=== PATIENT | male | born 1940 | race Two or more races ===

== ENCOUNTER 2018-05-12 10:03 | Outpatient (CLI) | payer OTHER | END 2018-05-12 10:11 | disposition home or self-care (01) | LOC: SONOGRAMA 10:03 | DX: I11.9 Hypertensive heart disease without heart failure (principal); N18.2 Chronic kidney disease, stage 2 (mild) ==

== ENCOUNTER 2021-04-22 08:00 | Outpatient (CLI) | payer OTHER | END 2021-04-22 08:30 | disposition home or self-care (01) | LOC: PPH VACUNA 08:00 | PROVIDERS: ATTEND Emergency Medicine Pediatric Emergency Medicine | DX: Z23 Encounter for immunization (principal) ==

== ENCOUNTER → 2021-11-11 | Outpatient (CLI) | payer OTHER | END | disposition home or self-care (01) | LOC: PPH VACUNA 08:00 | PROVIDERS: ATTEND Emergency Medicine Pediatric Emergency Medicine | DX: Z23 Encounter for immunization (principal) ==

== ENCOUNTER 2021-12-17 09:14 | Outpatient (CLI) | payer OTHER | END 2021-12-17 09:20 | disposition home or self-care (01) | LOC: SONOGRAMA 09:14 | PROVIDERS: ATTEND Internal Medicine Gastroenterology | DX: K76.0 Fatty (change of) liver, not elsewhere classified (principal) ==

== ENCOUNTER 2021-12-19 15:26 | Outpatient (CLI) | payer OTHER | END 2021-12-19 15:32 | disposition home or self-care (01) | LOC: RAD 15:26 | PROVIDERS: ATTEND Physical Medicine & Rehabilitation | DX: M54.50 Low back pain, unspecified (principal) ==

== ENCOUNTER 2022-04-06 12:26 | Outpatient (CLI) | payer OTHER | END 2022-04-06 12:36 | disposition home or self-care (01) | LOC: PPH VACUNA 12:26 | PROVIDERS: ATTEND Emergency Medicine Pediatric Emergency Medicine | DX: Z23 Encounter for immunization (principal) ==

== ENCOUNTER 2023-03-25 11:24 | Outpatient (CLI) | payer OTHER | END 2023-03-25 11:32 | disposition home or self-care (01) | LOC: MRI 11:24 | PROVIDERS: ATTEND Psychiatry & Neurology Neurology | DX: G31.84 Mild cognitive impairment of uncertain or unknown etiology (principal) | CPT/HCPCS: 70551 ==

== ENCOUNTER → 2023-06-30 | Outpatient (CLI) | payer OTHER | END | disposition home or self-care (01) | LOC: MRI 06-29 13:42 | DX: M75.51 Bursitis of right shoulder (principal); M75.101 Unspecified rotator cuff tear or rupture of right shoulder, not specified as traumatic; M75.31 Calcific tendinitis of right shoulder | CPT/HCPCS: 73221 ==

== ENCOUNTER 2023-09-22 10:24 | Outpatient (CLI) | payer OTHER | END 2023-09-22 10:33 | disposition home or self-care (01) | LOC: RAD 10:24 | PROVIDERS: ATTEND Physical Medicine & Rehabilitation Sports Medicine | DX: M75.42 Impingement syndrome of left shoulder (principal); M70.62 Trochanteric bursitis, left hip; M75.112 Incomplete rotator cuff tear or rupture of left shoulder, not specified as traumatic ==

== ENCOUNTER 2024-04-07 09:28 | Outpatient (CLI) | payer OTHER | END 2024-04-07 09:34 | disposition home or self-care (01) | LOC: RAD 09:28 | PROVIDERS: ATTEND Physical Medicine & Rehabilitation Sports Medicine | DX: M19.041 Primary osteoarthritis, right hand (principal); M19.042 Primary osteoarthritis, left hand ==